=== PATIENT | female | born 1950 | race Hispanic/Latino ===

== ENCOUNTER 2016-12-22 09:23 | Outpatient (CLI) | payer OTHER ==
--- NOTE | 2016-12-22 14:42 | Mammography Report ---
BILATERAL DIGITAL SCREENING MAMMOGRAM with CAD : 12/22/16 09:23:00 CLINICAL: Routine screening.Breast cancer survivor status post right partial mastectomy and 2006. COMPARISON:12/23/15 FINDINGS: The breasts are heterogeneously dense, which may obscure small masses. Stable right postsurgical scar. Right upper outer surgical clips. Bilateral benign calcifications. No mass, architectural distortion or suspicious calcifications. IMPRESSION: No mammographic evidence of malignancy. BI-RADS CATEGORY: 2 -- Benign RECOMMENDATION: Routine mammographic screening in one year. COMMENT: Patient follow-up letters are generated by our [employer] application.
== END 2016-12-22 09:24 | disposition home or self-care (01) ==
LOC: SPVWC 09:23
PROVIDERS: ATTEND Internal Medicine Hematology & Oncology
DX: Z12.31 Encounter for screening mammogram for malignant neoplasm of breast (principal); Z90.11 Acquired absence of right breast and nipple
CPT/HCPCS: 77067; G0202

== ENCOUNTER 2017-12-27 08:16 | Outpatient (CLI) | payer MEDICARE ==
--- NOTE | 2017-12-27 16:33 | Mammography Report ---
BILATERAL DIGITAL SCREENING MAMMOGRAM WITH CAD: 12/27/17 08:16:00 CLINICAL: Routine screening.Breast cancer survivor status post right mastectomy . COMPARISON:12/22/16 FINDINGS: The breasts are heterogeneously dense, which may obscure small masses. Stable right outer and retroareolar postsurgical scar with dystrophic calcifications. Surgical clips in the upper outer right breast. Subtle left architectural distortion on the MLO view requires additional imaging. Scattered benign calcifications in both breasts. IMPRESSION: Left architectural distortion requiring additional imaging. BI-RADS CATEGORY: 0--Needs Additional Imaging RECOMMENDATION: Recall for left true lateral and MLO spot magnification views and left breast ultrasound if needed. COMMENT: Patient follow-up letters are generated via our [employer] application.
== END 2017-12-27 08:17 | disposition home or self-care (01) ==
LOC: SPVWC 08:16
PROVIDERS: ATTEND Internal Medicine Hematology & Oncology
DX: Z12.31 Encounter for screening mammogram for malignant neoplasm of breast (principal); Z90.11 Acquired absence of right breast and nipple
CPT/HCPCS: 77067

== ENCOUNTER 2018-01-10 13:01 | Outpatient (CLI) | payer MEDICARE ==
--- NOTE | 2018-01-10 13:35 | Mammography Report ---
LEFT DIGITAL DIAGNOSTIC MAMMOGRAM : 01/10/18 13:01:00 CLINICAL: Recall to evaluate asymmetry and architectural distortion. COMPARISON:12/27/17 screening FINDINGS: ML, exaggerated CC and MLO spot magnification views were performed and are negative. A few benign calcifications. IMPRESSION: No mammographic evidence of malignancy. BI-RADS CATEGORY: 2 - - Benign RECOMMENDATION: Routine mammographic screening in one year. ACR BI-RADS MAMMOGRAPHIC CODES: 0 = Needs additional imaging evaluation; 1 = Negative; 2 = Benign; 3 = Probably benign; 4 = Suspicious; 5 = Malignant; 6 = Known biopsy-proven malignancy COMMENT: 1. Dense breast tissue, i.e., adenosis, fibrocystic changes, etc., may obscure an underlying neoplasm. 2. Approximately 10% of cancers are not detected with mammography. 3. A negative mammography report should not delay biopsy if a clinically suspicious mass is present. COMMENT: Patient follow-up letters are generated via our [employer] application.
== END 2018-01-10 13:02 | disposition home or self-care (01) ==
LOC: SPVWC 13:01
PROVIDERS: ATTEND Internal Medicine Hematology & Oncology
DX: R92.8 Other abnormal and inconclusive findings on diagnostic imaging of breast (principal); Z85.3 Personal history of malignant neoplasm of breast

== ENCOUNTER 2019-01-03 09:58 | Outpatient (CLI) | payer MEDICARE ==
--- NOTE | 2019-01-03 11:58 | Mammography Report ---
BILATERAL DIGITAL SCREENING MAMMOGRAM WITH CAD: 01/03/19 09:58:00 CLINICAL: Routine screening.Breast cancer survivor status post right partial mastectomy with radiation therapy. COMPARISON:12/27/17 FINDINGS: The breasts are heterogeneously dense, which may obscure small masses. Stable right outer postsurgical scar with large 9 dystrophic calcifications. Surgical clips in right axilla. No mass, suspicious architectural distortion or suspicious calcifications. IMPRESSION: No mammographic evidence of malignancy. BI-RADS CATEGORY: 2 -- Benign RECOMMENDATION: Routine mammographic screening in one year. COMMENT: Patient follow-up letters are generated via our [employer] application.
== END 2019-01-03 09:59 | disposition home or self-care (01) ==
LOC: SPVWC 09:58
PROVIDERS: ATTEND Internal Medicine Hematology & Oncology
DX: Z12.31 Encounter for screening mammogram for malignant neoplasm of breast (principal)
CPT/HCPCS: 77067